=== PATIENT | female | born 1995 | race African-American/Black ===

== ENCOUNTER 2016-05-13 11:57 | Emergency (ER) | payer MEDICAID ==
[~2016-05-13] VITALS: Ht 167.6 cm; Wt 52.2 kg
[~2016-05-13 11:57] MED LIST: ALBU0.084
[2016-05-13 13:29] LABS: Basophils # (auto) 0 uL; Basophils % (auto) 0.5 % (0.0-2.0); Eosinophils # (auto) 0.2 uL; Eosinophils % (auto) 3.3 % (0.0-7.0); Hematocrit 47.4 % (36.0-46.0); Hemoglobin 14.9 g/dL (12.2-16.2); Lymphocytes # (auto) 2.4 uL; Lymphocytes % (auto) 44.3 % (10.0-50.0); Mean Corpuscular Hemoglobin 27.7 pg (28.0-32.0); Mean Corpuscular Hgb Conc. 31.4 g/dL (32.0-36.0); Mean Corpuscular Volume 88.3 fL (80.0-100.0); Mean Platelet Volume 9.3 fL (7.4-10.4); Monocytes # (auto) 0.6 uL; Monocytes % (auto) 10.6 % (0.0-12.0); Neutrophils # (auto) 2.2 uL; Neutrophils % (auto) 41.3 % (37.0-80.0); Platelet Count (auto) 321 10^3/uL (140-450); Red Cell Distribution Width 14.2 % (11.6-16.0); White Blood Cell 5.4 10^3/uL (4.4-10.8)
[2016-05-13 13:51] LABS: Albumin 4.1 g/dL (3.4-5.0); BUN/Creatinine Ratio 16.3; Bilirubin, Total 0.4 mg/dL (0.2-1.0); Calcium 9.1 mg/dL (8.5-10.1); Potassium 4.5 mmol/L (3.5-5.1); Total Protein 8.2 g/dL (6.4-8.2)
[2016-05-13 14:08] LABS: Urine Bilirubin Negative (Negative); Urine Blood Negative /uL (Negative); Urine Color Yellow (Yellow); Urine Glucose Normal (Normal); Urine Ketone Negative (Negative); Urine Mucus FEW (None Seen); Urine Nitrite Negative (Negative); Urine RBC 1 /hpf (0 - 4); Urine Squamous Epithelial Cell FEW /hpf (<5); Urine Urobilinogen Normal (Negative)
[2016-05-13 18:35] VITALS: BP 115/51
== END 2016-05-13 18:35 | disposition home or self-care (01) ==
LOC: ER 11:59
DX: R10.9 Unspecified abdominal pain (principal); N39.0 Urinary tract infection, site not specified; J45.909 Unspecified asthma, uncomplicated
CPT/HCPCS: 36415; 74176; 80053; 81001; 81025; 85025; 99285; J7030

== ENCOUNTER 2016-05-22 23:28 | Emergency (ER) | payer MEDICAID ==
[~2016-05-22] VITALS: Ht 167.6 cm; Wt 56.7 kg
[2016-05-22 23:54] VITALS: BP 127/79
== END 2016-05-23 03:14 | disposition home or self-care (01) ==
LOC: ER 23:34
DX: L03.116 Cellulitis of left lower limb (principal); J45.909 Unspecified asthma, uncomplicated

== ENCOUNTER 2016-10-10 15:51 | Emergency (ER) | payer MEDICAID ==
[~2016-10-10] VITALS: Ht 167.6 cm; Wt 55.8 kg
[2016-10-10 16:47] LABS: Basophils # (auto) 0 uL; Basophils % (auto) 0.6 % (0.0-2.0); CONDITION Y; Eosinophils # (auto) 0.2 uL; Eosinophils % (auto) 4.1 % (0.0-7.0); Hematocrit 46.3 % (36.0-46.0); Hemoglobin 15.6 g/dL (12.2-16.2); Lymphocytes # (auto) 2.4 uL; Lymphocytes % (auto) 43.7 % (10.0-50.0); Mean Corpuscular Hemoglobin 29.4 pg (28.0-32.0); Mean Corpuscular Hgb Conc. 33.8 g/dL (32.0-36.0); Mean Platelet Volume 9.6 fL (7.4-10.4); Monocytes # (auto) 0.5 uL; Monocytes % (auto) 9.3 % (0.0-12.0); Neutrophils # (auto) 2.4 uL; Neutrophils % (auto) 42.3 % (37.0-80.0); Platelet Count (auto) 293 10^3/uL (140-450); Red Cell Distribution Width 13.9 % (11.6-16.0); White Blood Cell 5.6 10^3/uL (4.4-10.8)
[2016-10-10 16:52] LABS: Urine Bilirubin Negative (Negative); Urine Color Yellow (Yellow); Urine Glucose Normal (Normal); Urine Ketone Negative (Negative); Urine Mucus FEW (None Seen); Urine Nitrite Negative (Negative); Urine RBC 1 /hpf (0 - 4); Urine Squamous Epithelial Cell FEW /hpf (<5)
[2016-10-10 16:53] LABS: Urine Blood 1+ /uL (Negative)
[2016-10-10 16:57] LABS: Albumin 4.1 g/dL (3.4-5.0); BUN/Creatinine Ratio 16.4; Bilirubin, Total 0.4 mg/dL (0.2-1.0); Calcium 8.9 mg/dL (8.5-10.1); Potassium 4.2 mmol/L (3.5-5.1); Total Protein 7.9 g/dL (6.4-8.2)
[2016-10-10 17:30] VITALS: BP 116/69
== END 2016-10-11 02:12 | disposition left against medical advice (07) ==
LOC: ER 15:52
DX: R10.9 Unspecified abdominal pain (principal); N89.9 Noninflammatory disorder of vagina, unspecified; Z53.21 Procedure and treatment not carried out due to patient leaving prior to being seen by health care provider
CPT/HCPCS: 36415; 74176; 76856; 80053; 81001; 84702; 85025

== ENCOUNTER 2017-02-28 22:50 | Emergency (ER) | payer MEDICAID ==
[~2017-02-28] VITALS: Ht 167.6 cm; Wt 54.4 kg
[2017-02-28 23:53] LABS: Basophils # (auto) 0.1 uL; Basophils % (auto) 1.3 % (0.0-2.0); Eosinophils # (auto) 0.2 uL; Eosinophils % (auto) 4.7 % (0.0-7.0); Hematocrit 41.3 % (36.0-46.0); Hemoglobin 13.7 g/dL (12.2-16.2); Lymphocytes # (auto) 1.9 uL; Lymphocytes % (auto) 37.7 % (10.0-50.0); Mean Corpuscular Hemoglobin 29.1 pg (28.0-32.0); Mean Corpuscular Hgb Conc. 33.1 g/dL (32.0-36.0); Mean Corpuscular Volume 87.9 fL (80.0-100.0); Mean Platelet Volume 9.2 fL (6.9-10.8); Monocytes # (auto) 0.6 uL; Monocytes % (auto) 12.7 % (0.0-12.0); Neutrophils # (auto) 2.2 uL; Neutrophils % (auto) 43.6 % (37.0-80.0); Platelet Count (auto) 313 10^3/uL (140-450); Red Cell Distribution Width 12.8 % (11.8-14.3)
[2017-03-01 00:07] LABS: INR 1.09 (0.9-1.15); Partial Thromboplastin Time 28.7 sec (22.64-33.71); Prothrombin Time 11.9 sec (9.37-12.3)
[2017-03-01 00:11] LABS: Urine Bilirubin Negative (Negative); Urine Blood 2+ /uL (Negative); Urine Color Yellow (Yellow); Urine Glucose Normal (Normal); Urine Ketone Negative (Negative); Urine Nitrite Negative (Negative); Urine RBC 1 /hpf (0 - 4); Urine Squamous Epithelial Cell FEW /hpf (<5); Urine pH 8.5 (5.0-8.0)
[2017-03-01 00:15] LABS: Albumin 3.9 g/dL (3.4-5.0); BUN/Creatinine Ratio 13.8; Calcium 9.1 mg/dL (8.5-10.1)
[2017-03-01 00:18] LABS: Bilirubin, Total 0.2 mg/dL (0.2-1.0); Total Protein 8.2 g/dL (6.4-8.2)
[2017-03-01 00:55] VITALS: BP 107/72
== END 2017-03-01 01:48 | disposition home or self-care (01) ==
LOC: ER 22:52
DX: N93.8 Other specified abnormal uterine and vaginal bleeding (principal); J45.909 Unspecified asthma, uncomplicated
CPT/HCPCS: 36415; 76856; 80053; 81001; 84702; 85025; 85610; 85730; 86850; 86900; 86901

== ENCOUNTER 2017-07-26 21:37 | Emergency (ER) | payer MEDICAID ==
[~2017-07-26] VITALS: Ht 167.6 cm; Wt 56.2 kg
[2017-07-26 21:42] VITALS: BP 118/75
[2017-07-26 22:45] LABS: Basophils # (auto) 0.1 uL; Eosinophils # (auto) 0.1 uL; Hemoglobin 10.2 g/dL (12.2-16.2); Mean Corpuscular Hemoglobin 22.2 pg (28.0-32.0); Mean Corpuscular Volume 70.7 fL (80.0-100.0); Monocytes # (auto) 0.6 uL; Neutrophils # (auto) 4.8 uL
[2017-07-26 22:53] LABS: Lymphocytes % (auto) 24.1 % (10.0-50.0); Neutrophils % (auto) 65.3 % (37.0-80.0); White Blood Cell 7.4 10^3/uL (4.4-10.8)
[2017-07-26 22:54] LABS: Basophils % (auto) 0.8 % (0.0-2.0); Eosinophils % (auto) 1.8 % (0.0-7.0); Hematocrit 32.6 % (36.0-46.0); Lymphocytes # (auto) 1.8 uL; Red Blood Cells 4.61 10^6/uL (4.0-5.20)
[2017-07-26 22:55] LABS: Mean Corpuscular Hgb Conc. 31.3 g/dL (32.0-36.0); Platelet Count (auto) 330 10^3/uL (140-450); Red Cell Distribution Width 18.9 % (11.8-14.3)
[2017-07-26 22:56] LABS: Albumin 3.7 g/dL (3.4-5.0); BUN/Creatinine Ratio 12.7; Calcium 8.8 mg/dL (8.5-10.1); Potassium 3.5 mmol/L (3.5-5.1)
[2017-07-26 22:59] LABS: Bilirubin, Total 0.3 mg/dL (0.2-1.0); Total Protein 7.6 g/dL (6.4-8.2)
[2017-07-26 23:11] LABS: Urine Bacteria FEW /hpf (None Seen); Urine Blood Negative /uL (Negative); Urine Mucus FEW (None Seen); Urine Specific Gravity 1.032 (1.001-1.035); Urine WBC 19 /hpf (0 - 5)
== END 2017-07-27 03:44 | disposition left against medical advice (07) ==
LOC: ER 21:37
DX: R10.2 Pelvic and perineal pain (principal); Z32.01 Encounter for pregnancy test, result positive; Z53.21 Procedure and treatment not carried out due to patient leaving prior to being seen by health care provider
CPT/HCPCS: 36415; 80053; 81001; 81025; 84702; 85025

== ENCOUNTER 2017-09-08 19:17 | Emergency (ER) | payer MEDICAID ==
[~2017-09-08] VITALS: Ht 167.6 cm; Wt 51.4 kg
[2017-09-08 19:46] VITALS: BP 121/85
[2017-09-08 20:33] LABS: Eosinophils # (auto) 0.1 uL; Lymphocytes # (auto) 1.4 uL
[2017-09-08 20:35] LABS: Basophils # (auto) 0.1 uL; Basophils % (auto) 0.9 % (0.0-2.0); Eosinophils % (auto) 1.1 % (0.0-7.0); Hematocrit 37.4 % (36.0-46.0); Mean Corpuscular Hemoglobin 23.3 pg (28.0-32.0); Mean Corpuscular Hgb Conc. 32.2 g/dL (32.0-36.0); Mean Corpuscular Volume 72.4 fL (80.0-100.0); Monocytes # (auto) 0.7 uL; Monocytes % (auto) 11.8 % (0.0-12.0); Neutrophils % (auto) 64.2 % (37.0-80.0); Nucleated Red Blood Cells % 0.2 %; Platelet Count (auto) 424 10^3/uL (140-450); Red Blood Cells 5.16 10^6/uL (4.0-5.20); White Blood Cell 6.3 10^3/uL (4.4-10.8)
[2017-09-08 20:41] LABS: Red Cell Distribution Width 20.1 % (11.8-14.3)
[2017-09-08 20:50] LABS: INR 0.98 (0.9-1.15); Partial Thromboplastin Time 27.2 sec (23.78-33.04); Prothrombin Time 10.5 sec (9.27-12.13)
[2017-09-08 20:51] LABS: Albumin 3.7 g/dL (3.4-5.0); Calcium 9.1 mg/dL (8.5-10.1); Potassium 3.1 mmol/L (3.5-5.1)
[2017-09-08 20:54] LABS: Bilirubin, Total 0.3 mg/dL (0.2-1.0); Total Protein 9.1 g/dL (6.4-8.2)
[2017-09-08 20:58] LABS: Urine Bacteria FEW /hpf (None Seen); Urine Blood Negative /uL (Negative); Urine Mucus MODERATE (None Seen); Urine Specific Gravity 1.035 (1.001-1.035); Urine WBC 20 /hpf (0 - 5)
== END 2017-09-09 00:20 | disposition left against medical advice (07) ==
LOC: ER 19:17
DX: O21.9 Vomiting of pregnancy, unspecified (principal); O26.891 Other specified pregnancy related conditions, first trimester; R42 Dizziness and giddiness; Z3A.12 12 weeks gestation of pregnancy; Z53.21 Procedure and treatment not carried out due to patient leaving prior to being seen by health care provider
CPT/HCPCS: 36415; 76801; 80053; 81001; 84702; 85025; 85610; 85730; 86850; 86900; 86901

== ENCOUNTER 2018-03-28 17:50 | Emergency (ER) | payer MEDICAID ==
[~2018-03-28] VITALS: Ht 167.6 cm; Wt 56.7 kg
[2018-03-28 18:18] VITALS: BP 107/71
[2018-03-28 18:55] LABS: Urine Bacteria NONE SEEN /hpf (None Seen); Urine Blood Negative /uL (Negative); Urine Mucus FEW (None Seen); Urine Specific Gravity 1.033 (1.001-1.035); Urine WBC 3 /hpf (0 - 5)
[2018-03-28 19:36] LABS: Eosinophils # (auto) 0.1 uL; Hemoglobin 10.9 g/dL (12.2-16.2); Mean Corpuscular Volume 71.6 fL (80.0-100.0); Monocytes # (auto) 0.5 uL; Nucleated Red Blood Cells % 0.1 %
[2018-03-28 19:38] LABS: Basophils # (auto) 0 uL; Eosinophils % (auto) 2.5 % (0.0-7.0); Hematocrit 35.3 % (36.0-46.0); Lymphocytes # (auto) 1.6 uL; Mean Corpuscular Hemoglobin 22.1 pg (28.0-32.0); Mean Corpuscular Hgb Conc. 30.9 g/dL (32.0-36.0); Monocytes % (auto) 11.4 % (0.0-12.0); Neutrophils # (auto) 1.8 uL; Neutrophils % (auto) 45.1 % (37.0-80.0); Platelet Count (auto) 289 10^3/uL (140-450); Red Blood Cells 4.93 10^6/uL (4.0-5.20); Red Cell Distribution Width 17.5 % (11.8-14.3)
[2018-03-28 19:52] LABS: Alanine Aminotransferase 19 U/L (13-56); Albumin 4.1 g/dL (3.4-5.0); Anion Gap 4 (5-15); Aspartate Aminotransferase 15 U/L (15-37); Blood Urea Nitrogen 16 mg/dL (7-18); Calcium 8.6 mg/dL (8.5-10.1); Carbon Dioxide 28 mmol/L (21-32); Chloride 106 mmol/L (98-107); Glucose 82 mg/dL (74-106); Potassium 4.1 mmol/L (3.5-5.1); Sodium 138 mmol/L (136-145)
[2018-03-28 19:57] LABS: Alkaline Phosphatase 70 U/L (45-117); Bilirubin, Total 0.3 mg/dL (0.2-1.0); GFR African American 95 mL/min; GFR Non-African American 78 mL/min; Total Protein 8.3 g/dL (6.4-8.2)
== END 2018-03-28 21:59 | disposition home or self-care (01) ==
LOC: ER 17:54
DX: R07.89 Other chest pain (principal); M25.521 Pain in right elbow; J45.909 Unspecified asthma, uncomplicated; Z79.899 Other long term (current) drug therapy; Z86.711 Personal history of pulmonary embolism
CPT/HCPCS: 36415; 71046; 73080; 80053; 81001; 81025; 84484; 85025; 85379; 93005

== ENCOUNTER 2018-07-27 11:38 | Emergency (ER) | payer SELFPAY ==
[~2018-07-27] VITALS: Ht 167.6 cm; Wt 56.2 kg
[2018-07-27 11:55] VITALS: BP 99/51
== END 2018-07-27 16:25 | disposition left against medical advice (07) ==
LOC: ER 11:42
DX: M79.604 Pain in right leg (principal); Z53.21 Procedure and treatment not carried out due to patient leaving prior to being seen by health care provider

== ENCOUNTER 2018-12-25 07:49 | Emergency (ER) | payer MEDICAID ==
[~2018-12-25] VITALS: Ht 167.6 cm; Wt 58.5 kg
[2018-12-25 08:23] LABS: Eosinophils # (auto) 0.2 uL; Neutrophils # (auto) 2.7 uL; Nucleated Red Blood Cells % 0.1 %; White Blood Cell 5.3 10^3/uL (4.4-10.8)
[2018-12-25 08:24] LABS: Basophils # (auto) 0.1 uL; Eosinophils % (auto) 3.6 % (0.0-7.0); Hematocrit 33.3 % (36.0-46.0); Hemoglobin 10.4 g/dL (12.2-16.2); Lymphocytes # (auto) 1.9 uL; Mean Corpuscular Hgb Conc. 31.3 g/dL (32.0-36.0); Monocytes # (auto) 0.5 uL; Neutrophils % (auto) 50.4 % (37.0-80.0); Platelet Count (auto) 352 10^3/uL (140-450); Red Blood Cells 4.97 10^6/uL (4.0-5.20)
[2018-12-25 08:29] LABS: Red Cell Distribution Width 22.7 % (11.8-14.3)
[2018-12-25 08:53] LABS: Potassium 3.4 mmol/L (3.5-5.1)
[2018-12-25 09:04] LABS: Albumin 4.1 g/dL (3.4-5.0); BUN/Creatinine Ratio 15.2; Bilirubin, Total 0.3 mg/dL (0.2-1.0); Calcium 8.8 mg/dL (8.5-10.1); Total Protein 8.3 g/dL (6.4-8.2)
[2018-12-25 13:30] VITALS: BP 119/50
[2018-12-25 13:42] LABS: Urine Bacteria NONE SEEN /hpf (None Seen); Urine Blood 2+ /uL (Negative); Urine Mucus FEW (None Seen); Urine Specific Gravity 1.029 (1.001-1.035); Urine WBC 4 /hpf (0 - 5)
== END 2018-12-25 14:06 | disposition home or self-care (01) ==
LOC: ER 07:50
DX: O46.91 Antepartum hemorrhage, unspecified, first trimester (principal); Z3A.01 Less than 8 weeks gestation of pregnancy
CPT/HCPCS: 36415; 76801; 80053; 81001; 84702; 85025

== ENCOUNTER → 2019-08-21 | Emergency (ER) | payer SELFPAY ==
[~2019-08-21] VITALS: Ht 167.6 cm; Wt 56.7 kg
[~2019-08-21] MED LIST changes: +ASPirin 81 mg TAB PO ONE
[2019-08-21 10:26] LABS: Basophils # (auto) 0 10 ^3/uL (0-0.2); Basophils % (auto) 1.3 % (0.0-2.0); Eosinophils # (auto) 0.1 10 ^3/uL (0-0.8); Eosinophils % (auto) 4.1 % (0.0-7.0); Hematocrit 38.4 % (36.0-46.0); Hemoglobin 12.4 g/dL (12.2-16.2); Lymphocytes # (auto) 1.4 10 ^3/uL (0.4-5.4); Lymphocytes % (auto) 42.5 % (10.0-50.0); Mean Corpuscular Hemoglobin 25.7 pg (28.0-32.0); Mean Corpuscular Hgb Conc. 32.2 g/dL (32.0-36.0); Mean Corpuscular Volume 79.7 fL (80.0-100.0); Monocytes # (auto) 0.4 10 ^3/uL (0-1.3); Monocytes % (auto) 11.9 % (0.0-12.0); Neutrophils # (auto) 1.4 10 ^3/uL (1.6-8.6); Neutrophils % (auto) 40.2 % (37.0-80.0); Nucleated Red Blood Cells % 0.2 %; Platelet Count (auto) 324 10^3/uL (140-450); Red Blood Cells 4.82 10^6/uL (4.0-5.20); Red Cell Distribution Width 19.5 % (11.8-14.3); White Blood Cell 3.4 10^3/uL (4.4-10.8)
[2019-08-21 10:27] LABS: Calcium 8.8 mg/dL (8.5-10.1); Chloride 108 mmol/L (98-107); Potassium 3.6 mmol/L (3.5-5.1); Sodium 139 mmol/L (136-145)
[2019-08-21 10:36] LABS: Alanine Aminotransferase 14 U/L (13-56); Albumin 3.8 g/dL (3.4-5.0); Alkaline Phosphatase 57 U/L (45-117); Anion Gap 4 (5-15); Aspartate Aminotransferase 12 U/L (15-37); BUN/Creatinine Ratio 15.9; Bilirubin, Total 0.4 mg/dL (0.2-1.0); Blood Urea Nitrogen 14 mg/dL (7-18); Carbon Dioxide 27 mmol/L (21-32); GFR African American 102 mL/min; GFR Non-African American 84 mL/min; Glucose 83 mg/dL (74-106); Total Protein 7.8 g/dL (6.4-8.2)
[2019-08-21 11:30] VITALS: BP 111/73
== END | disposition home or self-care (01) ==
LOC: ER 09:25
DX: R07.89 Other chest pain (principal); Z88.2 Allergy status to sulfonamides
CPT/HCPCS: 36415; 71046; 80053; 84443; 84484; 85025; 85379; 93005

== ENCOUNTER 2023-06-12 07:38 | Emergency (ER) | payer MEDICAID ==
[~2023-06-12] VITALS: Ht 167.6 cm; Wt 64.5 kg
[~2023-06-12 07:38] MED LIST changes: -ASPirin 81 mg TAB PO ONE
[2023-06-12 07:42] VITALS: TEMP 98.2
[2023-06-12 07:45] VITALS: BP 139/90; PULSE 100; RESP 16; O2SAT 99
[2023-06-12] MEDS ORDERED: HYDR-3682 PO (08:30)
== END 2023-06-12 08:31 | disposition home or self-care (01) ==
LOC: ER 07:38
DX: F41.9 Anxiety disorder, unspecified (principal); F32.9 Major depressive disorder, single episode, unspecified; J45.909 Unspecified asthma, uncomplicated; Z88.2 Allergy status to sulfonamides

== ENCOUNTER 2023-12-04 08:17 | Emergency (ER) | payer MEDICAID ==
[~2023-12-04] VITALS: Ht 170.2 cm; Wt 64.5 kg
[~2023-12-04 08:17] MED LIST changes: +HYDR-3682 PO
[2023-12-04 08:48] VITALS: BP 106/73; PULSE 59; RESP 16; TEMP 98; O2SAT 100
[2023-12-04] MEDS ORDERED: IBUP-1456 PO (08:50)
[2023-12-04] MEDS ORDERED: PRED20TA2 PO (08:50)
== END 2023-12-04 08:50 | disposition home or self-care (01) ==
LOC: ER 08:17
DX: M54.41 Lumbago with sciatica, right side (principal); J45.909 Unspecified asthma, uncomplicated; Z88.2 Allergy status to sulfonamides

== ENCOUNTER 2023-12-18 11:08 | Emergency (ER) | payer MEDICAID ==
[~2023-12-18] VITALS: Ht 167.6 cm; Wt 61.6 kg
[~2023-12-18 11:08] MED LIST changes: +IBUP-1456 PO; +PRED20TA2 PO
[2023-12-18 12:30] LABS: Basophils # (auto) 0 10 ^3/uL (0-0.2); Basophils % (auto) 0.8 % (0.0-2.0); Eosinophils # (auto) 0.1 10 ^3/uL (0-0.8); Eosinophils % (auto) 2.1 % (0.0-7.0); Hematocrit 42.6 % (36.0-46.0); Hemoglobin 14.4 g/dL (12.2-16.2); Lymphocytes # (auto) 1.8 10 ^3/uL (0.4-5.4); Lymphocytes % (auto) 38.3 % (10.0-50.0); Mean Corpuscular Hemoglobin 28.9 pg (28.0-32.0); Mean Corpuscular Hgb Conc. 33.7 g/dL (32.0-36.0); Mean Corpuscular Volume 85.6 fL (80.0-100.0); Monocytes # (auto) 0.5 10 ^3/uL (0-1.3); Monocytes % (auto) 10.9 % (0.0-12.0); Neutrophils # (auto) 2.3 10 ^3/uL (1.6-8.6); Neutrophils % (auto) 47.9 % (37.0-80.0); Platelet Count (auto) 309 10^3/uL (140-450); Red Blood Cells 4.98 10^6/uL (4.0-5.20); Red Cell Distribution Width 16.1 % (11.8-14.3); White Blood Cell 4.8 10^3/uL (4.4-10.8)
[2023-12-18 12:47] LABS: Alanine Aminotransferase 13 U/L (7-40); Alkaline Phosphatase 60 U/L (46-116); Anion Gap 4 (5-15); Aspartate Aminotransferase 10 U/L (13-40); Blood Urea Nitrogen 8 mg/dL (9-23); Calcium 10.2 mg/dL (8.7-10.4); Carbon Dioxide 29 mmol/L (20-30); Chloride 105 mmol/L (98-107); Glucose 85 mg/dL (74-106); Sodium 138 mmol/L (136-145)
[2023-12-18 12:48] LABS: Bilirubin, Total 0.6 mg/dL (0.2-1.0); Total Protein 8.3 g/dL (5.7-8.2)
[2023-12-18 15:42] VITALS: BP 121/79; TEMP 98.4
[2023-12-18 15:43] VITALS: PULSE 76; RESP 16; O2SAT 100
== END 2023-12-18 15:45 | disposition home or self-care (01) ==
LOC: ER 11:08
DX: N93.8 Other specified abnormal uterine and vaginal bleeding (principal); D25.9 Leiomyoma of uterus, unspecified; R42 Dizziness and giddiness; J45.909 Unspecified asthma, uncomplicated; Z88.2 Allergy status to sulfonamides
CPT/HCPCS: 36415; 76856; 80053; 85025; 86850; 86900; 86901

== ENCOUNTER 2024-01-07 15:42 | Inpatient (IN) | payer MEDICAID ==
[~2024-01-07] VITALS: Ht 167.6 cm; Wt 66.3 kg
[2024-01-07 16:06] LABS: Basophils # (auto) 0.1 10 ^3/uL (0-0.2); Basophils % (auto) 1.3 % (0.0-2.0); Eosinophils # (auto) 0.3 10 ^3/uL (0-0.8); Eosinophils % (auto) 5.7 % (0.0-7.0); Hematocrit 30.5 % (36.0-46.0); Hemoglobin 10.1 g/dL (12.2-16.2); Lymphocytes # (auto) 2.5 10 ^3/uL (0.4-5.4); Lymphocytes % (auto) 44.9 % (10.0-50.0); Mean Corpuscular Hemoglobin 27.6 pg (28.0-32.0); Mean Corpuscular Hgb Conc. 33.2 g/dL (32.0-36.0); Mean Corpuscular Volume 83.1 fL (80.0-100.0); Monocytes # (auto) 0.6 10 ^3/uL (0-1.3); Monocytes % (auto) 10.9 % (0.0-12.0); Neutrophils # (auto) 2.1 10 ^3/uL (1.6-8.6); Neutrophils % (auto) 37.2 % (37.0-80.0); Nucleated Red Blood Cells % 0.2 %; Platelet Count (auto) 360 10^3/uL (140-450); Red Blood Cells 3.67 10^6/uL (4.0-5.20); Red Cell Distribution Width 15.1 % (11.8-14.3); White Blood Cell 5.5 10^3/uL (4.4-10.8)
[2024-01-07 16:28] LABS: Albumin 4.7 g/dL (3.2-4.8); Alkaline Phosphatase 51 U/L (46-116); Anion Gap 6 (5-15); Aspartate Aminotransferase 11 U/L (13-40); BUN/Creatinine Ratio 11.4 (10.0-20.0); Blood Urea Nitrogen 12 mg/dL (9-23); Calcium 9.7 mg/dL (8.7-10.4); Carbon Dioxide 28 mmol/L (20-31); Chloride 108 mmol/L (98-107); Glucose 94 mg/dL (74-106); Magnesium 1.9 mg/dL (1.6-2.6); Sodium 142 mmol/L (136-145)
[2024-01-07 16:29] LABS: Bilirubin, Total 0.4 mg/dL (0.2-1.0); Total Protein 7.2 g/dL (5.7-8.2)
[2024-01-07 16:33] LABS: Alanine Aminotransferase < 9 U/L (7-40)
[2024-01-07] MEDS: IPRATROPIUM BROM 0.5 MG/2.5ML INH SOL NEB ONE (16:33)
[2024-01-07] MEDS: ALBUTEROL SULF 2.5 MG/0.5ML(0.5%) NEB SOLN NEB ONE (16:34)
[2024-01-07] MEDS: ASPirin 325 MG TAB PO ONE (20:10)
[2024-01-07] MEDS: methylPREDNISolone SOD SUCC 125 MG/2 ML VL IV ONE (20:11)
[2024-01-07 20:30] VITALS: PULSE 76; RESP 18; O2SAT 100
[2024-01-07 21:33] VITALS: BP 101/84; PULSE 71; RESP 20; O2SAT 100
[2024-01-07 22:28] LABS: INR 1.05 (0.9-1.15); Partial Thromboplastin Time 25.4 SEC (24.5-34.5); Prothrombin Time 11.1 sec (9.3-11.8)
[2024-01-07] MEDS: predniSONE 20 MG TAB PO ONE (22:54)
[2024-01-07 23:11] VITALS: PULSE 72; RESP 18; O2SAT 98
[2024-01-07] MEDS: ALBUTEROL SULF 2.5 MG/0.5ML(0.5%) NEB SOLN NEB PRN (23:11)
[2024-01-07] MEDS: IPRATROPIUM BROM 0.5 MG/2.5ML INH SOL NEB PRN (23:11)
[2024-01-07 23:21] VITALS: PULSE 79; RESP 18; O2SAT 99
[2024-01-08 00:16] LABS: Urine Bacteria None Seen /hpf (None Seen)
[2024-01-08 00:41] LABS: Amphetamine Screen, Urine Neg (NEGATIVE)
[2024-01-08 00:42] LABS: Barbiturate Scree,Urine Neg (NEGATIVE); Benzodiazephine Screen, Urine Neg (NEGATIVE); Cannabinoid Screen, Urine Neg (NEGATIVE); Cocaine Screen, Urine Neg (NEGATIVE); Opiate Scree,Urine Neg (NEGATIVE); Phencyclidine Screen, Urine Neg (NEGATIVE)
[2024-01-08 00:57] LABS: Urine Blood Negative /uL (Negative); Urine Clarity Clear (Clear); Urine Color Light-Yellow (Yellow); Urine Mucus FEW (None Seen); Urine Protein, UAD Negative (Negative); Urine Specific Gravity 1.016 (1.001-1.035); Urine Urobilinogen Normal (Negative); Urine WBC 3 /hpf (0 - 5)
[2024-01-08 01:09] LABS: COVID19 ANTIGEN SOFIA FIA NEGATIVE (NEGATIVE)
[2024-01-08 07:29] VITALS: O2SAT 100
[2024-01-08 08:49] LABS: Basophils # (auto) 0 10 ^3/uL (0-0.2); Basophils % (auto) 0.1 % (0.0-2.0); Eosinophils # (auto) 0 10 ^3/uL (0-0.8); Eosinophils % (auto) 0.1 % (0.0-7.0); Hematocrit 31.3 % (36.0-46.0); Lymphocytes # (auto) 0.5 10 ^3/uL (0.4-5.4); Lymphocytes % (auto) 10.8 % (10.0-50.0); Mean Corpuscular Hemoglobin 27.2 pg (28.0-32.0); Mean Corpuscular Hgb Conc. 31.9 g/dL (32.0-36.0); Mean Corpuscular Volume 85.3 fL (80.0-100.0); Monocytes # (auto) 0.1 10 ^3/uL (0-1.3); Monocytes % (auto) 1.5 % (0.0-12.0); Neutrophils # (auto) 4.5 10 ^3/uL (1.6-8.6); Neutrophils % (auto) 87.5 % (37.0-80.0); Platelet Count (auto) 346 10^3/uL (140-450); Red Blood Cells 3.67 10^6/uL (4.0-5.20); Red Cell Distribution Width 14.9 % (11.8-14.3); White Blood Cell 5.1 10^3/uL (4.4-10.8)
[2024-01-08 09:07] LABS: Albumin 4.4 g/dL (3.2-4.8); Alkaline Phosphatase 48 U/L (46-116); Anion Gap 7 (5-15); Aspartate Aminotransferase 16 U/L (13-40); BUN/Creatinine Ratio 11.8 (10.0-20.0); Blood Urea Nitrogen 9 mg/dL (9-23); Calcium 9.5 mg/dL (8.7-10.4); Carbon Dioxide 22 mmol/L (20-31); Chloride 109 mmol/L (98-107); Glucose 121 mg/dL (74-106); Potassium 4.1 mmol/L (3.5-5.1); Sodium 138 mmol/L (136-145)
[2024-01-08 09:08] LABS: Alanine Aminotransferase < 9 U/L (7-40); Bilirubin, Total 0.4 mg/dL (0.2-1.0); Total Protein 7.2 g/dL (5.7-8.2)
[2024-01-08 17:58] VITALS: PULSE 74; RESP 18; O2SAT 99
[2024-01-08 18:08] VITALS: PULSE 79; RESP 18; O2SAT 100
[2024-01-08 20:00] VITALS: PULSE 80; RESP 18; O2SAT 100
[2024-01-08 21:00] VITALS: BP 108/68; PULSE 71; RESP 20; TEMP 98.6; O2SAT 99
[2024-01-08 21:06] VITALS: PULSE 71; RESP 20; O2SAT 99
[2024-01-08] MEDS ORDERED: MULT-1018 PO (21:10)
[2024-01-08] MEDS ORDERED: CHOL50007 PO (21:10)
[2024-01-09] VITALS (9 sets, daily range): BP systolic 104–110; BP diastolic 59–73; PULSE 63–79; RESP 17–19; TEMP 97.6–98.6; O2SAT 94–100
[2024-01-09 06:32] LABS: Basophils # (auto) 0 10 ^3/uL (0-0.2); Basophils % (auto) 0.6 % (0.0-2.0); Eosinophils # (auto) 0.1 10 ^3/uL (0-0.8); Eosinophils % (auto) 1.3 % (0.0-7.0); Hematocrit 27.6 % (36.0-46.0); Hemoglobin 9.3 g/dL (12.2-16.2); Lymphocytes # (auto) 2.4 10 ^3/uL (0.4-5.4); Lymphocytes % (auto) 29.8 % (10.0-50.0); Mean Corpuscular Hemoglobin 27.8 pg (28.0-32.0); Mean Corpuscular Hgb Conc. 33.7 g/dL (32.0-36.0); Mean Corpuscular Volume 82.5 fL (80.0-100.0); Monocytes # (auto) 0.9 10 ^3/uL (0-1.3); Monocytes % (auto) 11.1 % (0.0-12.0); Neutrophils # (auto) 4.6 10 ^3/uL (1.6-8.6); Neutrophils % (auto) 57.2 % (37.0-80.0); Nucleated Red Blood Cells % 0.1 %; Platelet Count (auto) 343 10^3/uL (140-450); Red Blood Cells 3.34 10^6/uL (4.0-5.20); Red Cell Distribution Width 14.9 % (11.8-14.3)
[2024-01-09 06:37] LABS: Anion Gap 8 (5-15); Carbon Dioxide 27 mmol/L (20-31); Chloride 109 mmol/L (98-107); Potassium 3.5 mmol/L (3.5-5.1); Sodium 144 mmol/L (136-145)
[2024-01-09 06:39] LABS: Calcium 9.3 mg/dL (8.7-10.4)
[2024-01-09 06:43] LABS: BUN/Creatinine Ratio 21.1 (10.0-20.0); Blood Urea Nitrogen 20 mg/dL (9-23); Glucose 96 mg/dL (74-106)
[2024-01-09] MEDS ORDERED: PRED20TA2 PO (13:28)
== END 2024-01-09 15:35 | disposition home or self-care (01) | DRG 141 ==
LOC: ER 15:47 → TELE 21:15 → TELE-CENTR 01-08 21:00
PROVIDERS: ADMIT Internal Medicine; ATTEND Internal Medicine
DX: J45.901 Unspecified asthma with (acute) exacerbation (principal); I24.9 Acute ischemic heart disease, unspecified; D62 Acute posthemorrhagic anemia; Z20.822 Contact with and (suspected) exposure to COVID-19; N93.9 Abnormal uterine and vaginal bleeding, unspecified
CPT/HCPCS: 36415; 71046; 78582; 80048; 80053; 80307; 80320; 81001; 82306; 82607; 83735; 84443; 84484; 85025; 85379; 85610; 85730; 86141; 87081; 87426; 93005; 93306; 93970; 94640; 96374; G0378

== ENCOUNTER 2024-01-25 12:34 | Emergency (ER) | payer MEDICAID ==
[~2024-01-25] VITALS: Ht 167.6 cm; Wt 64.7 kg
[~2024-01-25 12:34] MED LIST changes: -ALBU0.084; +CHOL50007 PO; -HYDR-3682 PO; -IBUP-1456 PO; +MULT-1018 PO
[2024-01-25 14:44] LABS: Urine Bacteria None Seen /hpf (None Seen)
[2024-01-25 14:55] LABS: Urine Blood Negative /uL (Negative); Urine Clarity Clear (Clear); Urine Color Yellow (Yellow); Urine Mucus FEW (None Seen); Urine Protein, UAD Negative (Negative); Urine Specific Gravity 1.026 (1.001-1.035); Urine Urobilinogen Normal (Negative); Urine WBC 2 /hpf (0 - 5); Urine pH 5.5 (5.0-9.0)
[2024-01-25 16:47] VITALS: BP 128/88; PULSE 94; RESP 18; TEMP 97.9; O2SAT 100
== END 2024-01-25 16:48 | disposition home or self-care (01) ==
LOC: ER 12:34
DX: F41.9 Anxiety disorder, unspecified (principal); R10.2 Pelvic and perineal pain; J45.909 Unspecified asthma, uncomplicated; D64.9 Anemia, unspecified; Z98.890 Other specified postprocedural states
CPT/HCPCS: 36415; 81001; 84702

== ENCOUNTER 2025-01-23 08:55 | Emergency (ER) | payer MEDICAID ==
[~2025-01-23] VITALS: Ht 167.6 cm; Wt 62.3 kg
[~2025-01-23 08:55] MED LIST changes: +IBUP1TAB5 PO; +LIDO5DIS21 TOP; +METH-1181 PO
[2025-01-23 09:03] VITALS: BP 107/86; PULSE 88; RESP 16; TEMP 96.9; O2SAT 100
[2025-01-23 10:15] LABS: Hematocrit 43.1 % (36.0-46.0); Hemoglobin 14.8 g/dL (12.2-16.2); Mean Corpuscular Hemoglobin 29.0 pg (28.0-32.0); Mean Corpuscular Volume 84.2 fL (80.0-100.0); Nucleated Red Blood Cells % 0.0 %
--- NOTE | 2025-01-23 10:16 | ED.PDOC ---
History of Present Illness HPI Comments 29 y/o F presents with c/c of acid reflux, with associated nausea and vomiting. Patient reports on 2x day history of symptoms. She states on being , currently, with her 6th (LMP 10/23/24; [id number]). Patient comments on vomitus, last night, being yellowish in appearance prior to changing to dark brown and reporting on 'tasting blood' in her mouth afterwards. Denial of any further acute symptoms. Chief Complaint: GI Bleed Time Seen by MD: 09:20 Primary Care Provider: LEIA Reviewed Notes: Nurses Notes, Medications, Allergies Allergies: Coded Allergies: Sulfa Antibiotics (Verified Allergy, Unknown, 08/21/19) Uncoded Allergies: ORANGE JUICE (Allergy, Mild, HIVES, 01/08/24) ORANGES (Allergy, Mild, HIVES, 01/08/24) Home Meds Active Scripts Lidocaine (LIDODERM 5% TOPICAL PATCH) 1 Patch Ph, 1 PATCH TOP DAILY for 30 Days, #30 PATCH 0 Refills Prov:HILDA VILLARREAL DESKTOP PUBLISHING SPECIALIST 07/15/24 Ibuprofen Micronized (Ibuprofen) 600 Mg Tab, 600 MG PO TID for 10 Days, #30 TAB 0 Refills Prov:HILDA VILLARREAL DESKTOP PUBLISHING SPECIALIST 07/15/24 Methocarbamol (Methocarbamol) 500 Mg Tab, 500 MG PO Q8HP PRN for 14 Days, #42 TAB 0 Refills Prov:HILDA VILLARREAL DESKTOP PUBLISHING SPECIALIST 07/15/24 Prednisone (Prednisone) 20 Mg Tab, 20 MG PO DAILY for 3 Days, #3 MG Prov:KATRINA PACKER RESIDENT 01/09/24 Reported Medications Multiple Vitamin (Multivitamins) Tab, 1 TAB PO DAILY, TAB 01/08/24 Cholecalciferol (VITAMIN D3) 5,000 Unit Cap, 1 CAP PO DAILY 01/08/24 Information Source: Patient Mode of Arrival: Ambulatory Severity: Moderate Timing: Hours Duration: Since onset Prehospital treatment: None (.0) Past Medical History PAST MEDICAL HISTORY: Anemia, Asthma, PE 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 Hx, Other 6 Para 2 AB 3 LMP 10/23/24 Family History Family History: Reviewed,noncontributory to illness, Unknown Family History (Other): Sickle-Cell Blood clots Social History Smoker: Non-Smoker Alcohol: Denies ETOH Use Drugs: Denies Drug Use Lives In: Home All Other Systems: Reviewed and Negative (Comprehensive review of systems are negative unless stated in HPI) Physical Exam General Appearance: Moderate Distress HEENT: Normal ENT Inspection, Pharynx Normal, TMs Normal Neck: Full Range of Motion, Non-Tender, Normal, Normal Inspection Respiratory: Chest Non-Tender, Lungs Clear, No Accessory Muscle Use, No Respiratory Distress, Normal Breath Sounds Cardiovascular: No Edema, No JVD, No Murmur, No Gallop, Normal Peripheral Pulses, Regular Rate/Rhythm Breast Exam: Deferred Gastrointestinal: No Organomegaly, Non Tender, No Pulsatile Mass, Normal Bowel Sounds, Soft Genitalia: Deferred Pelvic: Deferred Rectal: Deferred Extremities: No calf tenderness, Normal capillary refill, Normal inspection, Normal range of motion, Non-tender, No pedal edema Musculoskeletal : Apperance: Normal Neurologic: Alert, direct marketing specialist II-XII nml as Tested, No Motor Deficits, Normal Affect, Normal Mood, No Sensory Deficits Cerebellar Function: Normal Reflexes: Normal Skin: Dry, Normal Color, Warm Peripheral Pulses: 3+ Radial (R), 3+ Radial (L) Lymphatic: No Adenopathy Was a procedure done? Was a procedure done?: No Differential Dx Considerations may include: upper GI bleed, , gravidarum hyperemesis, anemia, among others X-Ray, Labs, Meds, VS Vital Signs Date Time Temp Pulse Resp B/P (MAP) Pulse Ox O2 Delivery O2 Flow Rate FiO2 01/23/25 09:03 96.9 88 16 107/86 100 96.9 Lab Test 01/23/25 09:47 01/23/25 09:12 Range/Units White Blood Count 4.9 4.4-10.8 10^3/uL Red Blood Count 5.12 4.0-5.20 10^6/uL Hemoglobin 14.8 12.2-16.2 g/dL Hematocrit 43.1 36.0-46.0 % Mean Corpuscular Volume 84.2 80.0-100.0 fL Mean Corpuscular Hemoglobin 29.0 28.0-32.0 pg Mean Corpuscular Hemoglobin Concent 34.4 32.0-36.0 g/dL Red Cell Distribution Width 13.0 11.8-14.3 % Platelet Count 328 140-450 10^3/uL Mean Platelet Volume 9.2 6.9-10.8 fL Neutrophils (%) (Auto) 54.1 37.0-80.0 % Lymphocytes (%) (Auto) 31.8 10.0-50.0 % Monocytes (%) (Auto) 11.6 0.0-12.0 % Eosinophils (%) (Auto) 1.8 0.0-7.0 % Basophils (%) (Auto) 0.7 0.0-2.0 % Neutrophils # (Auto) 2.7 1.6-8.6 10 ^3/uL Lymphocytes # (Auto) 1.6 0.4-5.4 10 ^3/uL Monocytes # (Auto) 0.6 0-1.3 10 ^3/uL Eosinophils # (Auto) 0.1 0-0.8 10 ^3/uL Basophils # (Auto) 0 0-0.2 10 ^3/uL Nucleated Red Blood Cells 0.0 % Sodium Level 138 136-145 mmol/L Potassium Level 3.6 3.5-5.1 mmol/L Chloride Level 98 98-107 mmol/L Carbon Dioxide Level 30 20-31 mmol/L Anion Gap 10 5-15 Blood Urea Nitrogen 8 L 9-23 mg/dL Creatinine 0.82 0.550-1.02 mg/dL Glomerular Filtration Rate Calc 99 >90 mL/min BUN/Creatinine Ratio 9.8 L 10.0-20.0 Serum Glucose 88 74-106 mg/dL Calcium Level 9.4 8.7-10.4 mg/dL Beta-Hydroxybutyric Acid 0.341 < 0.4 mmol/L Patient alert. No sign of distress. Vitals stable. Answering all questions. States that she is . WBC within normal limits. Hemoglobin within normal limits. Possible reflux. Explained to the patient. Was told to follow up with her OBGYN. Was told to follow up with her primary care physician. Was told to come back if there is any problem. Time of 1ST Reevaluation: 09:50 Reevaluation 1ST: Improved Patient Education/Counseling: Diagnosis, Treatment Family Education/Counseling: No Family Present SEPSIS Sepsis Screen Date sepsis recognized/suspect: Jan 23, 2025 Time Sepsis recognized/suspect: 905 Recent Procedure: No On Antibiotic Therapy: No Respiratory Rate >20: No Heart Rate >90: No Temp<36 C (96.8 F) or >38.3 C: No SBP <90 or MAP <65 mmHG: No New Acute Mental Status Change: No Is the patient on CPAP, BIPAP,: No Physician Orders Urinalysis (01/23/25 09:21) Sodium Chloride 0.9% (01/23/25 10:15) Vital Signs Date Time Temp Pulse Resp B/P (MAP) Pulse Ox O2 Delivery O2 Flow Rate FiO2 01/23/25 09:03 96.9 88 16 107/86 100 96.9 Laboratory Tests Test 01/23/25 09:47 White Blood Count 4.9 10^3/uL (4.4-10.8) Departure 1 Departure Time of Disposition: 10:43 Impression: Primary Impression: Normal Qualified Codes: Z34.90 - Encounter for supervision of normal , unspecified, unspecified trimester Additional Impression: Gastroesophageal reflux Qualified Codes: K21.9 - Gastro-esophageal reflux disease without esophagitis Disposition: 01 HOME / SELF CARE / HOMELESS Condition: Good Discharged With: Self Critical Care Note Critical Care Time?: No Stability Stability form required: No Heart Score Heart Score: Heart Score Response (Comments) Value History N/A 0 EKG N/A 0 Age N/A 0 Risk Factors N/A 0 Troponin N/A 0 Total 0 I personally scribed for ESMER ALMANZA MD ([email or web address]) on 01/23/25 at 10:16. Electronically submitted by Sumeet Perez ([email or web address]). ESMER ALMANZA MD Jan 23, 2025 10:16
[2025-01-23 10:22] LABS: Potassium 3.6 mmol/L (3.5-5.1); Sodium 138 mmol/L (136-145)
[2025-01-23 10:23] LABS: Anion Gap 10 (5-15); Calcium 9.4 mg/dL (8.7-10.4); Carbon Dioxide 30 mmol/L (20-31)
[2025-01-23 10:28] LABS: BUN/Creatinine Ratio 9.8 (10.0-20.0); Glucose 88 mg/dL (74-106)
[2025-01-23 10:33] LABS: Blood Urea Nitrogen 8 mg/dL (9-23); Chloride 98 mmol/L (98-107)
[2025-01-23] MEDS: SODIUM CHLORIDE 0.9% 1,000 ML IV ONE (11:22)
== END 2025-01-23 11:11 | disposition left against medical advice (07) ==
LOC: ER 08:55
DX: K21.9 Gastro-esophageal reflux disease without esophagitis (principal); J45.909 Unspecified asthma, uncomplicated; Z79.899 Other long term (current) drug therapy; Z88.2 Allergy status to sulfonamides; Z79.52 Long term (current) use of systemic steroids; Z79.1 Long term (current) use of non-steroidal anti-inflammatories (NSAID)
CPT/HCPCS: 36415; 80048; 82010; 84702; 85025